=== PATIENT | female | born 1965 | race American Indian/Alaskan Native ===

== ENCOUNTER 2016-09-26 00:12 | Emergency (ER) | payer OTHER ==
[2016-09-26 00:58] VITALS: BP 160/81
--- NOTE | 2016-09-26 01:59 | EDM.PDOC ---
ED HPI GENERAL MEDICAL PROBLEM - General Chief Complaint: Respiratory Problem Stated Complaint: FLUID IN LUNGS, COUGHING Time Seen by Provider: 09/26/16 00:55 - History of Present Illness INITIAL COMMENTS - FREE TEXT/NARRATIVE: cough for past 3-4 days, no fever, diagnosed with bronchitis in past, relates from being in heat and going into cold airconditioning at workk at [email or web address]. No SOB, occasional pain below ribs with coughing episodes. No fever Location: Reports: Chest Associated Symptoms: Denies: Fever/Chills, Loss of Appetite, Nausea/Vomiting, Rash, Shortness of Breath Mid-Sternal Chest Pain Score (Numeric/FACES): 7 - Related Data Allergies Allergy/AdvReac Type Severity Reaction Status Date / Time latex Allergy Rash Verified 09/26/16 00:58 Home Meds: Home Meds Aspirin [Zoey Chewable] 81 mg PO DAILY 09/20/13 [History] Ferrous Gluconate 325 mg PO DAILY 09/20/13 [History] Lisinopril 5 mg PO DAILY 09/20/13 [History] Sertraline HCl 100 mg PO DAILY 09/20/13 [History] Simvastatin [Zocor] 40 mg PO BEDTIME 09/20/13 [History] buPROPion [Wellbutrin SR] 100 mg PO DAILY 09/20/13 [History] glyBURIDE [Glyburide] 5 mg PO DAILY 09/20/13 [History] Gabapentin [Neurontin] 300 mg PO DAILY 09/26/16 [History] Saxagliptin HCl [Onglyza] 5 mg PO DAILY 09/26/16 [History] metFORMIN [Glucophage XR] 500 mg PO BIDMEALS 09/26/16 [History] Past Medical History HEENT History: Reports: Impaired Vision Other HEENT History: wears glasses Cardiovascular History: Reports: High Cholesterol, Hypertension Respiratory History: Reports: Bronchitis, Recurrent Genitourinary History: Reports: None 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 Musculoskeletal History: Reports: None Neurological History: Reports: None Psychiatric History: Reports: None Endocrine/Metabolic History: Reports: Diabetes, Type II Hematologic History: Reports: None Immunologic History: Reports: None Oncologic (Cancer) History: Reports: None - Past Surgical History GI Surgical History: Reports: Other (See Below) Other GI Surgeries/Procedures: Had recent sugery to fix ruptured intestines and henia Social & Family History - Family History Family Medical History: Noncontributory - Tobacco Use Smoking Status *Q: Never Smoker Second Hand Smoke Exposure: No - Alcohol Use Days Per Week of Alcohol Use: 0 - Recreational Drug Use Recreational Drug Use: No ED ROS GENERAL - Review of Systems Review Of Systems: See Below Constitutional: Denies: Fever HEENT: Reports: No Symptoms, Throat Pain (after coughing episodes) Respiratory: Reports: Cough, Sputum (yellow green at times) Cardiovascular: Reports: No Symptoms GI/Abdominal: Reports: No Symptoms Musculoskeletal: Reports: No Symptoms Skin: Reports: No Symptoms Neurological: Reports: No Symptoms ED EXAM, GENERAL - Physical Exam Exam: See Below Exam Limited By: Language Barrier General Appearance: Alert, Mild Distress Eye Exam: Bilateral Eye: EOMI Ears: Normal External Exam, Normal TMs Nose: Normal Inspection Throat/Mouth: Normal Inspection Head: Atraumatic, Normocephalic Neck: Normal Inspection, Full Range of Motion Respiratory/Chest: Decreased Breath Sounds (base), Other (harsh bronchial cough) . No: Rales, Rhonchi, Wheezing Cardiovascular: Normal Peripheral Pulses, Regular Rate, Rhythm GI/Abdominal: Normal Bowel Sounds Back Exam: Normal Inspection Extremities: Normal Inspection Neurological: Alert, Oriented, Normal Cognition Psychiatric: Normal Affect Skin Exam: Warm, Dry, Intact, Normal Color Course - Vital Signs Last Recorded V/S: Last Vital Signs Temp 98 F 09/26/16 00:53 Pulse 85 09/26/16 00:53 Resp 18 09/26/16 00:53 BP 160/81 H 09/26/16 00:53 Pulse Ox 98 09/26/16 00:53 - Orders/Labs/Meds Meds: Medications Discontinued Medications Generic Name Dose Route Start Last Admin Trade Name Donnell PRN Reason Stop Dose Admin Albuterol/Ipratropium 3 ml 09/26/16 02:10 09/26/16 02:14 Duoneb 3.0-0.5 Mg/3 Ml NEB 09/26/16 02:11 3 ml ONETIME ONE Administration Benzonatate 200 mg 09/26/16 03:01 09/26/16 03:18 Tessalon Perles PO 09/26/16 03:02 200 mg ONETIME ONE Administration Prednisone 40 mg 09/26/16 03:00 09/26/16 03:18 Prednisone PO 09/26/16 03:01 40 mg ONETIME ONE Administration Departure - Departure Time of Disposition: 03:01 Disposition: Home, Self-Care 01 Condition: Fair Clinical Impression: Bronchitis - Discharge Information Instructions: Acute Bronchitis, [id number] Referrals: Laverne Booth 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
[2016-09-26] MEDS ORDERED: Albuterol/Ipratropium 3.0-0.5 MG/3 ML Neb Soln NEB ONE (02:10)
[2016-09-26] MEDS ORDERED: predniSONE 20 MG Tab PO ONE (03:00)
[2016-09-26] MEDS ORDERED: Benzonatate 100 MG Cap PO ONE (03:01)
== END 2016-09-26 03:22 | disposition home or self-care (01) ==
LOC: DL.ED 00:12
DX: J40 Bronchitis, not specified as acute or chronic (principal); I10 Essential (primary) hypertension; E78.00 Pure hypercholesterolemia, unspecified; E11.9 Type 2 diabetes mellitus without complications; Z98.890 Other specified postprocedural states; Z79.84 Long term (current) use of oral hypoglycemic drugs; Z79.82 Long term (current) use of aspirin; Z79.899 Other long term (current) drug therapy; Z91.040 Latex allergy status
CPT/HCPCS: 71010; 99283; A9270

== ENCOUNTER 2019-03-15 04:23 | Emergency (ER) | payer OTHER ==
--- NOTE | 2019-03-15 04:41 | EDM.PDOC ---
ED HPI GENERAL MEDICAL PROBLEM - General Chief Complaint: Head Injury Stated Complaint: AMBULANCE Time Seen by Provider: 03/15/19 04:36 Source of Information: Reports: Patient, EMS History Limitations: Reports: No Limitations - History of Present Illness INITIAL COMMENTS - FREE TEXT/NARRATIVE: EMS arrived at scene pt in chair alert Ox3 stating been falling and hurt head denies neck pain. walked to ambulance unassisted. pt states been falling since yesterday from dizziness, no CP/SOB. admits to drinking tonight. Left Parietal Head Pain Score (Numeric/FACES): 7 Left Chest Pain Score (Numeric/FACES): 5 - Related Data Allergies Allergy/AdvReac Type Severity Reaction Status Date / Time latex Allergy Rash Verified 03/15/19 04:47 Home Meds: Home Meds Aspirin [Zoey Chewable] 81 mg PO DAILY 09/20/13 [History] Ferrous Gluconate 325 mg PO DAILY 09/20/13 [History] Lisinopril 5 mg PO DAILY 09/20/13 [History] Sertraline HCl 100 mg PO DAILY 09/20/13 [History] Simvastatin [Zocor] 40 mg PO BEDTIME 09/20/13 [History] buPROPion [Wellbutrin SR] 100 mg PO DAILY 09/20/13 [History] glyBURIDE [Glyburide] 5 mg PO DAILY 09/20/13 [History] Gabapentin [Neurontin] 300 mg PO DAILY 09/26/16 [History] Saxagliptin HCl [Onglyza] 5 mg PO DAILY 09/26/16 [History] metFORMIN [Glucophage XR] 500 mg PO BIDMEALS 09/26/16 [History] Past Medical History HEENT History: Reports: Impaired Vision Other HEENT History: wears glasses Cardiovascular History: Reports: High Cholesterol, Hypertension Respiratory History: Reports: Bronchitis, Recurrent Genitourinary History: Reports: None 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 Musculoskeletal History: Reports: Fracture Neurological History: Reports: None Psychiatric History: Reports: None Endocrine/Metabolic History: Reports: Diabetes, Type II Hematologic History: Reports: None Immunologic History: Reports: None Oncologic (Cancer) History: Reports: None - Past Surgical History GI Surgical History: Reports: Other (See Below) Other GI Surgeries/Procedures: Had recent sugery to fix ruptured intestines and henia Social & Family History - Family History Family Medical History: Noncontributory - Caffeine Use Caffeine Use: Reports: Coffee, Soda - Living Situation & Occupation Living situation: Reports: with Family Occupation: Disabled ED ROS GENERAL - Review of Systems Review Of Systems: Comprehensive ROS is negative, except as noted in HPI. ED EXAM, HEAD INJURY - Physical Exam Exam: See Below Exam Limited By: No Limitations General Appearance: Alert, WD/WN, Mild Distress, Other (discomfort) Head: Scalp Lacerations, Other (left parietal). No: Gordillo's Sign, Raccoon Eyes Nexus Criteria: Evidence of Intoxication. No: Posterior, Midline Cervical Tenderness, Altered Level of Consciousness, Focal Neurological Deficit, Painful Distraction Injuries Eyes: Bilateral Eye: PERRL (pupils ess ER @ 4mm) Ears: Hearing Grossly Normal Throat/Mouth: Normal Voice, No Airway Compromise Neck: Full Range of Motion Respiratory: No Respiratory Distress Cardiovascular: Regular Rate, Rhythm GI/Abdominal Exam: Soft, Non-Tender Neurologic: No Motor/Sensory Deficits, Alert, Oriented x 3 Skin: Normal Color, Warm/Dry - Stefanie Coma Score Best Eye Response (Turner): (4) Open Spontaneously Best Verbal Response (Turner): (5) Oriented Best Motor Response (Stefanie): (6) Obeys Commands Stefanie Total: 15 Course - Vital Signs Last Recorded V/S: Last Vital Signs Temp 36.0 C 03/15/19 04:42 Pulse 73 03/15/19 04:42 Resp 19 03/15/19 04:42 BP 105/64 03/15/19 04:42 Pulse Ox 98 03/15/19 04:42 - Orders/Labs/Meds Orders: Active Orders 24 hr Category Date Time Status Cervical Spine wo Cont [CT] Urgent Exams 03/15/19 04:38 Ordered Chest wo Cont [CT] Urgent Exams 03/15/19 04:38 Ordered Head wo Cont [CT] Urgent Exams 03/15/19 04:38 Taken Labs: Laboratory Tests 03/15/19 03/15/19 Range/Units 04:41 04:41 WBC 7.5 (5.0-10.0) 10^3/uL RBC 4.40 (4.2-5.4) 10^6/uL Hgb 13.0 D (12.0-16.0) g/dL Hct 38.2 (37.0-47.0) % MCV 86.8 (80-100) fL MCH 29.5 (27.0-34.0) pg MCHC 34.0 (33.0-35.0) g/dL Plt Count 162 (150-450) 10^3/uL Neut % (Auto) 62.6 (42.2-75.2) % Lymph % (Auto) 26.8 (20.5-50.1) % [place] % (Auto) 6.7 (2-8) % Eos % (Auto) 3.5 H (1.0-3.0) % Baso % (Auto) 0.4 (0.0-1.0) % Sodium 134 L (135-145) mmol/L Potassium 3.6 (3.6-5.0) mmol/L Chloride 108 (101-111) mmol/L Carbon Dioxide 17.0 L (21.0-31.0) mmol/L Anion Gap 12.6 BUN 7 (7-18) mg/dL Creatinine 0.6 (0.6-1.3) mg/dL Est Cr Clr Drug Dosing TNP Estimated GFR (MDRD) > 60 BUN/Creatinine Ratio 11.66 Glucose 188 H (74-105) mg/dL Calcium 8.1 L (8.4-10.2) mg/dl Total Bilirubin 0.4 (0.2-1.0) mg/dL AST 15 (10-42) IU/L ALT 19 (10-60) IU/L Alkaline Phosphatase 100 (42-121) IU/L Troponin I < 0.02 (0.00-0.02) ng/ml Total Protein 6.6 L (6.7-8.2) g/dl Albumin 3.2 (3.2-5.5) g/dl Globulin 3.4 Albumin/Globulin Ratio 0.94 Ethyl Alcohol 218 mg/dL - Re-Assessments/Exams Free Text/Narrative Re-Assessment/Exam: 03/15/19 05:53 results discussed with pt who was sleeping arousable, states left ribs still hurts. Departure - Departure Time of Disposition: 05:54 Disposition: Home, Self-Care 01 Condition: Good Clinical Impression: Concussion with less than 1 hour loss of consciousness Scalp abrasion Qualifiers: Encounter type: initial encounter Qualified Code(s): S00.01XA - Abrasion of scalp, initial encounter Alcohol intoxication Qualifiers: Complication of substance-induced condition: uncomplicated Qualified Code(s): F10.920 - Alcohol use, unspecified with intoxication, uncomplicated Contusion of rib on left side Qualifiers: Encounter type: initial encounter Qualified Code(s): S20.212A - Contusion of left front wall of thorax, initial encounter - Discharge Information Instructions: Concussion, Adult, [id number] Forms: ED Department Discharge Additional Instructions: 1) no bending straining lifting next 48 hours 2) take tylenol or motrin for discomfort 3) follow up at clinic Sepsis Event Note - Focused Exam Vital Signs: Vital Signs Temp Pulse Resp BP Pulse Ox 03/15/19 04:42 36.0 C 73 19 105/64 98 Date Exam was Performed: 03/15/19 Time Exam was Performed: 05:53 - My Orders Last 24 Hours: My Active Orders 03/15/19 04:38 Cervical Spine wo Cont [CT] Urgent Chest wo Cont [CT] Urgent Head wo Cont [CT] Urgent - Assessment/Plan Last 24 Hours: My Active Orders 03/15/19 04:38 Cervical Spine wo Cont [CT] Urgent Chest wo Cont [CT] Urgent Head wo Cont [CT] Urgent
[2019-03-15 04:47] VITALS: BP 105/64; PULSE 73
[2019-03-15 05:12] LABS: ANION GAP 12.6; CHLORIDE,CL 108 mmol/L (101-111); SODIUM,NA 134 mmol/L (135-145)
== END 2019-03-15 06:05 | disposition home or self-care (01) ==
LOC: DL.ED 04:23
DX: S06.0X9A Concussion with loss of consciousness of unspecified duration, initial encounter (principal); S20.211A Contusion of right front wall of thorax, initial encounter; F10.129 Alcohol abuse with intoxication, unspecified; R40.2412 Glasgow coma scale score 13-15, at arrival to emergency department; E11.9 Type 2 diabetes mellitus without complications; I10 Essential (primary) hypertension; E78.00 Pure hypercholesterolemia, unspecified; Z79.899 Other long term (current) drug therapy; Z79.84 Long term (current) use of oral hypoglycemic drugs; Z79.82 Long term (current) use of aspirin; W01.198A Fall on same level from slipping, tripping and stumbling with subsequent striking against other object, initial encounter; Y90.7 Blood alcohol level of 200-239 mg/100 ml
CPT/HCPCS: 36415; 70450; 71250; 72125; 80053; 84484; 85025; 99285-25; G0480

== ENCOUNTER 2020-08-16 07:37 | Emergency (ER) | payer OTHER, MEDICAID ==
[2020-08-16 07:54] VITALS: BP 97/63; PULSE 85
[2020-08-16] MEDS ORDERED: Acetaminophen 500 MG Tab PO ONE (08:30)
--- NOTE | 2020-08-16 09:10 | CR ---
PROCEDURE INFORMATION: Exam: XR Left Knee Exam date and time: 08/16/2020 8:43 AM Age: 55 years old Clinical indication: Injury or trauma; Fall; Blunt trauma; Knee; Left; Additional info: Slip and fall onto left knee; Lateral pain TECHNIQUE: Imaging protocol: XR Left knee. Views: 3 views. COMPARISON: No relevant prior studies available. FINDINGS: Bones/joints: Cortical irregularity of the most medial aspect of the medial tibial plateau suspicious for minimally displaced fracture. This is difficult to evaluate due to the obliquity with which the frontal view was acquired. Consider repeat views or CT. The bones are demineralized. Degenerative arthritis in the patellofemoral joint with joint space narrowing and cortical irregularity of the articular surface of the patella. Soft tissues: Normal. IMPRESSION: Findings suspicious for minimally displaced fracture of the medial tibial plateau.
--- NOTE | 2020-08-16 09:40 | CT ---
PROCEDURE INFORMATION: Exam: CT Left Lower Extremity Without Contrast, Knee Exam date and time: 08/16/2020 9:33 AM Age: 55 years old Clinical indication: Injury or trauma; Fall; Blunt trauma; Knee; Right; Additional info: R/O medial tibial plateau fracture TECHNIQUE: Imaging protocol: CT of the Left lower extremity without contrast was performed. Exam focused on the knee. Radiation optimization: All CT scans at this facility use at least one of these dose optimization techniques: automated exposure control; mA and/or kV adjustment per patient size (includes targeted exams where dose is matched to clinical indication); or iterative reconstruction. COMPARISON: CR Knee 3V Lt 08/16/2020 8:43 AM FINDINGS: Bones/joints: Small tricompartment marginal osteophytes of the left knee. Narrowed medial compartment. Cortical irregularity with cystic change and sclerosis of the patella. Soft tissues: Anterior subcutaneous edema. IMPRESSION: 1. No fracture identified 2. 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
--- NOTE | 2020-08-16 09:45 | EDM.PDOC ---
ED HPI GENERAL MEDICAL PROBLEM - General Chief Complaint: Lower Extremity Injury/Pain Stated Complaint: TWISTED KNEE AT WORK Time Seen by Provider: 08/16/20 08:00 Source of Information: Reports: Patient, RN, RN Notes Reviewed History Limitations: Reports: No Limitations - History of Present Illness INITIAL COMMENTS - FREE TEXT/NARRATIVE: Susannah is a 55 y/o female who presents to the ED via personal vehicle with complaints of left lateral knee pain. The patient reports falling onto her left knee while at work approximately four hours prior to arrival to this facility. She notes the injury happened at approximately 0600 and she was unable to come in earlier as she was the only person at work; she was able to ambulate and continue with her morning duties. She denies history of injury to the affected extremity. She denies loss of motor or sensory function to the affected extremity. She has not taken any pain medication for the achy pain which she rates at a 9/10. Left Knee Pain Score (Numeric/FACES): 8 - Related Data Allergies Allergy/AdvReac Type Severity Reaction Status Date / Time latex Allergy Rash Verified 08/16/20 07:55 Home Meds: Home Meds Aspirin [Zoey Chewable] 81 mg PO DAILY 09/20/13 [History] Ferrous Gluconate 325 mg PO DAILY 09/20/13 [History] Lisinopril 10 mg PO DAILY 09/20/13 [History] Sertraline HCl 100 mg PO DAILY 09/20/13 [History] Simvastatin [Zocor] 40 mg PO BEDTIME 09/20/13 [History] buPROPion [Wellbutrin SR] 100 mg PO DAILY 09/20/13 [History] glyBURIDE [Glyburide] 10 mg PO DAILY 09/20/13 [History] Gabapentin [Neurontin] 300 mg PO DAILY 09/26/16 [History] Saxagliptin HCl [Onglyza] 5 mg PO DAILY 09/26/16 [History] metFORMIN [Glucophage XR] 1,000 mg PO BIDMEALS 09/26/16 [History] Insulin Detemir [Levemir Flextouch] 10 unit SQ DAILY 08/16/20 [History] Past Medical History HEENT History: Reports: Impaired Vision Other HEENT History: wears glasses Cardiovascular History: Reports: High Cholesterol, Hypertension Respiratory History: Reports: Bronchitis, Recurrent Genitourinary History: Reports: None 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 Musculoskeletal History: Reports: Fracture Neurological History: Reports: None Psychiatric History: Reports: None Endocrine/Metabolic History: Reports: Diabetes, Type II Hematologic History: Reports: None Immunologic History: Reports: None Oncologic (Cancer) History: Reports: None - Past Surgical History GI Surgical History: Reports: Other (See Below) Other GI Surgeries/Procedures: Had recent sugery to fix ruptured intestines and henia Social & Family History - Family History Family Medical History: No Pertinent Family History - Tobacco Use Tobacco Use Status *Q: Current Status Unknown - Caffeine Use Caffeine Use: Reports: Soda - Recreational Drug Use Recreational Drug Use: No - Living Situation & Occupation Living situation: Reports: with Family Occupation: Disabled Review of Systems - Review of Systems Review Of Systems: Comprehensive ROS is negative, except as noted in HPI. ED EXAM, GENERAL - Physical Exam Exam: See Below Exam Limited By: No Limitations General Appearance: Alert, No Apparent Distress Eye Exam: Bilateral Eye: EOMI, Normal Inspection, PERRL (3mm) Throat/Mouth: Normal Inspection, Normal Oropharynx, Normal Voice, No Airway Compromise Head: Atraumatic, Normocephalic Respiratory/Chest: No Respiratory Distress, Lungs Clear, Normal Breath Sounds, No Accessory Muscle Use, Chest Non-Tender Cardiovascular: Normal Peripheral Pulses, Regular Rate, Rhythm, No Edema, No Gallop, No JVD, No Murmur, No Rub Peripheral Pulses: 2+: Radial (L), Radial (R), Posterior Tibial (L), Posterior Tibial (R), Dorsalis Pedis (L), Dorsalis Pedis (R) GI/Abdominal: Normal Bowel Sounds, Soft, Non-Tender, No Organomegaly, No Distention, No Abnormal Bruit, No Mass, Pelvis Stable Back Exam: Normal Inspection, Full Range of Motion Extremities: Normal Range of Motion, Normal Capillary Refill, Leg Pain (To left lateral knee). No: Joint Swelling, Rayo's Sign, Limited Range of Motion, Increased Warmth, Mottled, Pallor, Redness Neurological: Alert, Oriented, CN II-XII Intact, Normal Cognition, Normal Gait, Normal Reflexes, No Motor/Sensory Deficits Psychiatric: Normal Affect, Normal Mood Skin Exam: Warm, Dry, Intact, Normal Color, No Rash. No: Ecchymosis, Erythema, Mottled, Pallor, Petechiae Course - Vital Signs Last Recorded V/S: Last Vital Signs Temp 96.6 F L 08/16/20 07:50 Pulse 85 08/16/20 07:50 Resp 14 08/16/20 07:50 BP 97/63 08/16/20 07:50 Pulse Ox 99 08/16/20 07:50 - Orders/Labs/Meds Meds: Medications Discontinued Medications Generic Name Dose Route Start Last Admin Trade Name Freq PRN Reason Stop Dose Admin Acetaminophen 1,000 mg 08/16/20 08:30 08/16/20 08:36 Acetaminophen 500 Mg Tab PO 08/16/20 08:31 1,000 mg ONETIME ONE Administration Ibuprofen 600 mg 08/16/20 09:51 08/16/20 09:55 Ibuprofen 600 Mg Tab PO 08/16/20 09:52 Not Given ONETIME ONE - Radiology Interpretation Free Text/Narrative:: [facility] [place] [facility] Final Radiology Report Call: [phone] assistance Online chat: [email or web address] Name: SUSANNAH SHAH Age: 55Years F Date: 08/16/2020 SSN: -- : [id number] Study: CR KNEE 3V LT Requesting Physician: Maru Garrido Images: 3 Addl Studies: Provided Clinical History: Slip and fall onto left knee; lateral pain Contrast: Contrast Medium: Contrast Amount: Contrast Method: CONFIDENTIALITY STATEMENT This report is intended only for use by the referring physician, and only in accordance with law. If you received this in error, call [phone]. Page 1 of 1 PROCEDURE INFORMATION: Exam: XR Left Knee Exam date and time: 08/16/2020 8:43 AM Age: 55 years old Clinical indication: Injury or trauma; Fall; Blunt trauma; Knee; Left; Additional info: Slip and fall onto left knee; Lateral pain TECHNIQUE: Imaging protocol: XR Left knee. Views: 3 views. COMPARISON: No relevant prior studies available. FINDINGS: Bones/joints: Cortical irregularity of the most medial aspect of the medial tibial plateau suspicious for minimally displaced fracture. This is difficult to evaluate due to the obliquity with which the frontal view was acquired. Consider repeat views or CT. The bones are demineralized. Degenerative arthritis in the patellofemoral joint with joint space narrowing and cortical irregularity of the articular surface of the patella. Soft tissues: Normal. IMPRESSION: Findings suspicious for minimally displaced fracture of the medial tibial plateau. Thank you for allowing us to participate in the care of your patient. Dictated and Authenticated by: Hortencia Dunham MD 08/16/2020 9:10 AM Central Time ( & [place]) [facility] Final Radiology Report Call: [phone] assistance Online chat: [email or web address] Name: SUSANNAH SHAH Age: 55Years F Date: 08/16/2020 SSN: -- : [id number] Study: CT KNEE WO CONT LT Requesting Physician: Maru Garrido Images: 248 Addl Studies: Provided Clinical History: r/o medial tibial plateau Contrast: Without Contrast Medium: Contrast Amount: Contrast Method: CONFIDENTIALITY STATEMENT This report is intended only for use by the referring physician, and only in accordance with law. If you received this in error, call [phone]. Page 1 of 1 PROCEDURE INFORMATION: Exam: CT Left Lower Extremity Without Contrast, Knee Exam date and time: 08/16/2020 9:33 AM Age: 55 years old Clinical indication: Injury or trauma; Fall; Blunt trauma; Knee; Right; Additional info: R/O medial tibial plateau fracture TECHNIQUE: Imaging protocol: CT of the Left lower extremity without contrast was performed. Exam focused on the knee. Radiation optimization: All CT scans at this facility use at least one of these dose optimization techniques: automated exposure control; mA and/or kV adjustment per patient size (includes targeted exams where dose is matched to clinical indication); or iterative reconstruction. COMPARISON: CR Knee 3V Lt 08/16/2020 8:43 AM FINDINGS: Bones/joints: Small tricompartment marginal osteophytes of the left knee. Narrowed medial compartment. Cortical irregularity with cystic change and sclerosis of the patella. Soft tissues: Anterior subcutaneous edema. IMPRESSION: 1. No fracture identified 2. 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 Thank you for allowing us to participate in the care of your patient. Dictated and Authenticated by: Hortencia Dunham MD 08/16/2020 9:39 AM Central Time ([place] & [place]) - Re-Assessments/Exams Free Text/Narrative Re-Assessment/Exam: 08/16/20 Findings of examination and imaging reviewed with patient. Discussed supportive cares for acute knee pain and degenerative arthritis. Red flag signs and symptoms which would warrant reevaluation discussed. Patient verbalized understanding and agreement with the plan of care. Departure - Departure Time of Disposition: 09:47 Disposition: Home, Self-Care 01 Condition: Good Clinical Impression: Fall from ground level, Left lateral knee pain, Arthritis of left knee - Discharge Information *PRESCRIPTION DRUG MONITORING PROGRAM REVIEWED*: Not Applicable *COPY OF PRESCRIPTION DRUG MONITORING REPORT IN PATIENT [employer]: Not Applicable Instructions: Acute Knee Pain, Adult Forms: ED Department Discharge Additional Instructions: 1.) You may take ibuprofen (Advil/Motrin) 400mg every six hours, as pain and swelling persists. You may also take acetaminophen (Tylenol) 650mg every six hours, as pain persists. You may stagger these medications so you are receiving a dose every three hours. 2.) You may apply ice to the affected area, as swelling persists; 20 minutes on every hour. 3.) You may apply a compression sleeve to the knee should pain and swelling persist. 4.) Follow up with primary care provider in 5-7 days should pain not improve, or should it worsen. Sepsis Event Note (ED) - Evaluation Sepsis Screening Result: No Definite Risk - Focused Exam Vital Signs: Vital Signs Temp Pulse Resp BP Pulse Ox 08/16/20 07:50 96.6 F L 85 14 97/63 99
[2020-08-16] MEDS ORDERED: Ibuprofen 600 MG Tab PO ONE (09:51)
== END 2020-08-16 10:03 | disposition home or self-care (01) ==
LOC: DL.ED 07:37
DX: M17.12 Unilateral primary osteoarthritis, left knee (principal); E78.00 Pure hypercholesterolemia, unspecified; I10 Essential (primary) hypertension; E11.9 Type 2 diabetes mellitus without complications; Z79.82 Long term (current) use of aspirin; Z79.4 Long term (current) use of insulin; Z91.040 Latex allergy status; X50.1XXA Overexertion from prolonged static or awkward postures, initial encounter; Y99.0 Civilian activity done for income or pay
CPT/HCPCS: 73562; 73700; 99282; 99284; A9270

== ENCOUNTER 2020-08-18 18:38 | Emergency (ER) | payer OTHER, MEDICAID ==
[2020-08-18 19:31] VITALS: BP 120/92; PULSE 81
--- NOTE | 2020-08-18 22:33 | CR ---
PROCEDURE INFORMATION: Exam: XR Left Ribs with PA Chest Exam date and time: 08/18/2020 8:47 PM Age: 55 years old Clinical indication: Other: Left rib pain; Additional info: Fall left lower posterior rib pain TECHNIQUE: Imaging protocol: XR Left ribs with PA chest. Views: 3 views COMPARISON: 1. CT Chest wo Cont 03/15/2019 4:55 AM 2. CR Chest 1V Frontal 05/11/2018 8:35 AM FINDINGS: Lungs: Unremarkable. No consolidation. Pleural spaces: Unremarkable. No pleural effusion. No pneumothorax. Heart/Mediastinum: Unremarkable. No cardiomegaly. Bones/joints: Unremarkable. IMPRESSION: No acute findings.
--- NOTE | 2020-08-18 23:10 | EDM.PDOC ---
ED HPI GENERAL MEDICAL PROBLEM - General Chief Complaint: Chest Pain Stated Complaint: LEFT RIB CAGE PAIN Time Seen by Provider: 08/18/20 20:15 Source of Information: Reports: Patient History Limitations: Reports: No Limitations - History of Present Illness INITIAL COMMENTS - FREE TEXT/NARRATIVE: Left posterior rib pain x 2 days after fall, worse with movement. No cough or fever. Left Chest Pain Score (Numeric/FACES): 8 - Related Data Allergies Allergy/AdvReac Type Severity Reaction Status Date / Time latex Allergy Rash Verified 08/18/20 19:38 Home Meds: Home Meds Aspirin [Zoey Chewable] 81 mg PO DAILY 09/20/13 [History] Ferrous Gluconate 325 mg PO DAILY 09/20/13 [History] Lisinopril 10 mg PO DAILY 09/20/13 [History] Sertraline HCl 100 mg PO DAILY 09/20/13 [History] buPROPion [Wellbutrin SR] 100 mg PO DAILY 09/20/13 [History] glyBURIDE [Glyburide] 10 mg PO DAILY 09/20/13 [History] Gabapentin [Neurontin] 300 mg PO DAILY 09/26/16 [History] Saxagliptin HCl [Onglyza] 5 mg PO DAILY 09/26/16 [History] metFORMIN [Glucophage XR] 1,000 mg PO BIDMEALS 09/26/16 [History] Insulin Detemir [Levemir Flextouch] 10 unit SQ DAILY 08/16/20 [History] Cholecalciferol (Vitamin D3) [Vitamin D] 5,000 unit PO DAILY 08/18/20 [History] Pioglitazone [Actos] 30 mg PO DAILY 08/18/20 [History] atorvaSTATin [Lipitor] 10 mg PO BEDTIME 08/18/20 [History] Past Medical History HEENT History: Reports: Impaired Vision Other HEENT History: wears glasses Cardiovascular History: Reports: High Cholesterol, Hypertension Respiratory History: Reports: Bronchitis, Recurrent Genitourinary History: Reports: None 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 Musculoskeletal History: Reports: Fracture Neurological History: Reports: None Psychiatric History: Reports: Depression Endocrine/Metabolic History: Reports: Diabetes, Type II Hematologic History: Reports: None Immunologic History: Reports: None Oncologic (Cancer) History: Reports: None - Past Surgical History GI Surgical History: Reports: Hernia, Abdominal, Other (See Below) Other GI Surgeries/Procedures: Had recent sugery to fix ruptured intestines and henia Musculoskeletal Surgical History: Reports: Other (See Below) Other Musculoskeletal Surgeries/Procedures:: ankle surgery bilaterally, plates Social & Family History - Family History Family Medical History: No Pertinent Family History - Tobacco Use Tobacco Use Status *Q: Never Tobacco User - Caffeine Use Caffeine Use: Reports: Soda - Recreational Drug Use Recreational Drug Use: No - Living Situation & Occupation Living situation: Reports: with Family Occupation: Disabled ED ROS GENERAL - Review of Systems Review Of Systems: Comprehensive ROS is negative, except as noted in HPI. ED EXAM, GENERAL - Physical Exam Exam: See Below Exam Limited By: No Limitations General Appearance: Alert, Mild Distress Eye Exam: Bilateral Eye: EOMI Ears: Normal External Exam, Hearing Grossly Normal Nose: Normal Inspection Head: Atraumatic, Normocephalic Neck: Normal Inspection, Full Range of Motion Respiratory/Chest: No Respiratory Distress, Lungs Clear, Normal Breath Sounds. No: Chest Non-Tender (left posterior/lateral lower ribs tender with palpation), Rales, Rhonchi, Wheezing Cardiovascular: Normal Peripheral Pulses, Regular Rate, Rhythm GI/Abdominal: Normal Bowel Sounds, Soft Extremities: Normal Inspection Neurological: Alert, Oriented, Normal Cognition Psychiatric: Normal Affect Skin Exam: Warm, Dry, Intact, Normal Color Course - Vital Signs Last Recorded V/S: Last Vital Signs Temp 97.4 F 08/18/20 19:15 Pulse 81 08/18/20 19:15 Resp 18 08/18/20 19:15 BP 120/92 H 08/18/20 19:15 Pulse Ox 98 08/18/20 19:15 Departure - Departure Time of Disposition: 23:08 Disposition: Home, Self-Care 01 Condition: Good Clinical Impression: Rib pain on left side Fall Qualifiers: Encounter type: subsequent encounter Qualified Code(s): W19.XXXD - Unspecified fall, subsequent encounter - Discharge Information *PRESCRIPTION DRUG MONITORING PROGRAM REVIEWED*: No *COPY OF PRESCRIPTION DRUG MONITORING REPORT IN PATIENT ISIS: No Instructions: Chest Wall Pain, [id number] Referrals: Vince Landis [Primary Care Provider] - Forms: ED Department Discharge Additional Instructions: deep breathing exercises every two hours while awake tylenol 500mg every 4 hours heat to rib area emelina lucas or icy hot type product splint ribs when coughing, sneezing or changing position Sepsis Event Note (ED) - Evaluation Sepsis Screening Result: No Definite Risk - Focused Exam Vital Signs: Vital Signs Temp Pulse Resp BP Pulse Ox 08/18/20 19:15 97.4 F 81 18 120/92 H 98
== END 2020-08-18 23:27 | disposition home or self-care (01) ==
LOC: DL.ED 18:38
DX: R07.81 Pleurodynia (principal); E78.00 Pure hypercholesterolemia, unspecified; I10 Essential (primary) hypertension; E11.9 Type 2 diabetes mellitus without complications; Z79.4 Long term (current) use of insulin; Z91.040 Latex allergy status; Z79.82 Long term (current) use of aspirin; Z79.899 Other long term (current) drug therapy; W19.XXXD Unspecified fall, subsequent encounter
CPT/HCPCS: 71101-LT; 99282; 99283-25

== ENCOUNTER 2020-12-16 01:21 | Emergency (ER) | payer MEDICAID, OTHER ==
--- NOTE | 2020-12-16 01:13 | EDM.PDOC ---
ED HPI GENERAL MEDICAL PROBLEM - General Stated Complaint: AMBULANCE Time Seen by Provider: 12/16/20 01:30 Source of Information: Reports: Patient History Limitations: Reports: No Limitations - History of Present Illness INITIAL COMMENTS - FREE TEXT/NARRATIVE: ED with c/o SOB and constant chest pain x 4 days, Pain worse with cough. SOB lying down. Reports breathing feels worse when outside in cold. No report fever or chills. No nausea or vomiting. No report of fever. No edema - Related Data Allergies Allergy/AdvReac Type Severity Reaction Status Date / Time latex Allergy Rash Verified 12/16/20 01:26 Home Meds: Home Meds Aspirin [Zoey Chewable] 81 mg PO DAILY 09/20/13 [History] Ferrous Gluconate 325 mg PO DAILY 09/20/13 [History] Lisinopril 10 mg PO DAILY 09/20/13 [History] Sertraline HCl 100 mg PO DAILY 09/20/13 [History] buPROPion [Wellbutrin SR] 100 mg PO DAILY 09/20/13 [History] glyBURIDE [Glyburide] 10 mg PO DAILY 09/20/13 [History] Gabapentin [Neurontin] 300 mg PO DAILY 09/26/16 [History] Saxagliptin HCl [Onglyza] 5 mg PO DAILY 09/26/16 [History] metFORMIN [Glucophage XR] 1,000 mg PO BIDMEALS 09/26/16 [History] Insulin Detemir [Levemir Flextouch] 10 unit SQ DAILY 08/16/20 [History] Cholecalciferol (Vitamin D3) [Vitamin D] 5,000 unit PO DAILY 08/18/20 [History] Pioglitazone [Actos] 30 mg PO DAILY 08/18/20 [History] atorvaSTATin [Lipitor] 10 mg PO BEDTIME 08/18/20 [History] Past Medical History HEENT History: Reports: Impaired Vision Other HEENT History: wears glasses Cardiovascular History: Reports: High Cholesterol, Hypertension Respiratory History: Reports: Bronchitis, Recurrent Genitourinary History: Reports: None DATA SME History: Reports: None Musculoskeletal History: Reports: Fracture Neurological History: Reports: None Psychiatric History: Reports: Depression Endocrine/Metabolic History: Reports: Diabetes, Type II Hematologic History: Reports: None Immunologic History: Reports: None Oncologic (Cancer) History: Reports: None - Past Surgical History GI Surgical History: Reports: Hernia, Abdominal, Other (See Below) Other GI Surgeries/Procedures: Had recent sugery to fix ruptured intestines and henia Musculoskeletal Surgical History: Reports: Other (See Below) Other Musculoskeletal Surgeries/Procedures:: ankle surgery bilaterally, plates Social & Family History - Family History Family Medical History: No Pertinent Family History - Caffeine Use Caffeine Use: Reports: Soda - Living Situation & Occupation Living situation: Reports: with Family Occupation: Disabled ED ROS GENERAL - Review of Systems Review Of Systems: Comprehensive ROS is negative, except as noted in HPI. ED EXAM, GENERAL - Physical Exam Exam: See Below Exam Limited By: No Limitations General Appearance: Alert, Anxious, Mild Distress, Obese Eye Exam: Bilateral Eye: EOMI Ears: Normal External Exam Nose: Normal Inspection Throat/Mouth: Normal Inspection Head: Atraumatic, Normocephalic Neck: Normal Inspection Respiratory/Chest: No Respiratory Distress, Lungs Clear, Decreased Breath Sounds (bases) Cardiovascular: Normal Peripheral Pulses, Regular Rate, Rhythm, No Edema, No JVD GI/Abdominal: Normal Bowel Sounds, Soft Extremities: Normal Inspection Neurological: Alert, Oriented, CN II-XII Intact, Normal Cognition Psychiatric: Normal Affect, Anxious Skin Exam: Warm, Dry, Intact #1 Interpretation EKG Date: 12/16/20 Time: 01:13 Rhythm: NSR Rate (Beats/Min): 77 Elizabeth: RAD-Right Elizabeth Deviation P-Wave: Present QRS: Normal ST-T: Normal Comparison: NA - No Prior EKG Course - Vital Signs Last Recorded V/S: Last Vital Signs Temp 98.6 F 12/16/20 01:26 Pulse 77 12/16/20 01:26 Resp 24 H 12/16/20 01:26 BP 96/60 12/16/20 01:26 Pulse Ox 97 12/16/20 01:26 - Orders/Labs/Meds Labs: Laboratory Tests 12/16/20 12/16/20 12/16/20 Range/Units 01:16 01:16 01:16 WBC 5.6 (5.0-10.0) 10^3/uL RBC 4.01 L (4.2-5.4) 10^6/uL Hgb 11.8 L (12.0-16.0) g/dL Hct 36.4 L (37.0-47.0) % MCV 90.8 D (80-100) fL MCH 29.4 (27.0-34.0) pg MCHC 32.4 L (33.0-35.0) g/dL Plt Count 141 L (150-450) 10^3/uL Neut % (Auto) 54.7 (42.2-75.2) % Lymph % (Auto) 30.3 (20.5-50.1) % Phelps % (Auto) 7.6 (2-8) % Eos % (Auto) 6.9 H (1.0-3.0) % Baso % (Auto) 0.5 (0.0-1.0) % PT 9.5 (9.0-12.0) SEC INR 0.9 (0.9-1.2) D-Dimer, Quantitative (0-400) ng/mL Sodium 141 (136-145) mmol/L Potassium 3.2 L (3.5-5.1) mmol/L Chloride 106 (98-107) mmol/L Carbon Dioxide 21 (21-32) mmol/L Anion Gap 17.2 H (7-13) mEq/L BUN 14 (7-18) mg/dL Creatinine 0.79 (0.55-1.02) mg/dL Est Cr Clr Drug Dosing TNP Estimated GFR (MDRD) > 60 BUN/Creatinine Ratio 17.7 (No establ ref range) Glucose 139 H (70-99) mg/dL Calcium 8.1 L (8.5-10.1) mg/dL Total Bilirubin 0.3 (0.2-1.0) mg/dL AST 12 L (15-37) U/L ALT 20 (14-59) U/L Alkaline Phosphatase 158 H (46-116) U/L Troponin I High Sens 5 (<=51) pg/mL B-Natriuretic Peptide 12 (0-100) pg/ml Total Protein 6.8 (6.4-8.2) g/dL Albumin 3.1 L (3.4-5.0) g/dL Globulin 3.7 Albumin/Globulin Ratio 0.84 Amylase 34 (25-115) U/L Lipase 119 (73-393) U/L Ethyl Alcohol (0) mg/dL SARS-CoV-2 RNA (MARIIA) (NEGATIVE) 12/16/20 12/16/20 12/16/20 Range/Units 01:16 01:16 01:28 WBC (5.0-10.0) 10^3/uL RBC (4.2-5.4) 10^6/uL Hgb (12.0-16.0) g/dL Hct (37.0-47.0) % MCV (80-100) fL MCH (27.0-34.0) pg MCHC (33.0-35.0) g/dL Plt Count (150-450) 10^3/uL Neut % (Auto) (42.2-75.2) % Lymph % (Auto) (20.5-50.1) % Phelps % (Auto) (2-8) % Eos % (Auto) (1.0-3.0) % Baso % (Auto) (0.0-1.0) % PT (9.0-12.0) SEC INR (0.9-1.2) D-Dimer, Quantitative 493 H (0-400) ng/mL Sodium (136-145) mmol/L Potassium (3.5-5.1) mmol/L Chloride (98-107) mmol/L Carbon Dioxide (21-32) mmol/L Anion Gap (7-13) mEq/L BUN (7-18) mg/dL Creatinine (0.55-1.02) mg/dL Est Cr Clr Drug Dosing Estimated GFR (MDRD) BUN/Creatinine Ratio (No establ ref range) Glucose (70-99) mg/dL Calcium (8.5-10.1) mg/dL Total Bilirubin (0.2-1.0) mg/dL AST (15-37) U/L ALT (14-59) U/L Alkaline Phosphatase (46-116) U/L Troponin I High Sens (<=51) pg/mL B-Natriuretic Peptide (0-100) pg/ml Total Protein (6.4-8.2) g/dL Albumin (3.4-5.0) g/dL Globulin Albumin/Globulin Ratio Amylase (25-115) U/L Lipase (73-393) U/L Ethyl Alcohol 189 (0) mg/dL SARS-CoV-2 RNA (MARIIA) Negative (NEGATIVE) 12/16/20 Range/Units 04:15 WBC (5.0-10.0) 10^3/uL RBC (4.2-5.4) 10^6/uL Hgb (12.0-16.0) g/dL Hct (37.0-47.0) % MCV (80-100) fL MCH (27.0-34.0) pg MCHC (33.0-35.0) g/dL Plt Count (150-450) 10^3/uL Neut % (Auto) (42.2-75.2) % Lymph % (Auto) (20.5-50.1) % Phelps % (Auto) (2-8) % Eos % (Auto) (1.0-3.0) % Baso % (Auto) (0.0-1.0) % PT (9.0-12.0) SEC INR (0.9-1.2) D-Dimer, Quantitative (0-400) ng/mL Sodium (136-145) mmol/L Potassium (3.5-5.1) mmol/L Chloride (98-107) mmol/L Carbon Dioxide (21-32) mmol/L Anion Gap (7-13) mEq/L BUN (7-18) mg/dL Creatinine (0.55-1.02) mg/dL Est Cr Clr Drug Dosing Estimated GFR (MDRD) BUN/Creatinine Ratio (No establ ref range) Glucose (70-99) mg/dL Calcium (8.5-10.1) mg/dL Total Bilirubin (0.2-1.0) mg/dL AST (15-37) U/L ALT (14-59) U/L Alkaline Phosphatase (46-116) U/L Troponin I High Sens 5 (<=51) pg/mL B-Natriuretic Peptide (0-100) pg/ml Total Protein (6.4-8.2) g/dL Albumin (3.4-5.0) g/dL Globulin Albumin/Globulin Ratio Amylase (25-115) U/L Lipase (73-393) U/L Ethyl Alcohol (0) mg/dL SARS-CoV-2 RNA (MARIIA) (NEGATIVE) Meds: Medications Discontinued Medications Generic Name Dose Route Start Last Admin Trade Name Freq PRN Reason Stop Dose Admin Aspirin 162 mg 12/16/20 01:28 12/16/20 01:46 Aspirin 81 Mg Tab.Chew PO 12/16/20 01:29 162 mg ONETIME ONE Administration Sodium Chloride 1,000 mls @ 999 mls/hr 12/16/20 01:24 12/16/20 01:58 Normal Saline IV 12/16/20 02:24 150 mls/hr .BOLUS ONE Infusion Morphine Sulfate 2 mg 12/16/20 01:29 12/16/20 03:52 Morphine 2 Mg/Ml Syringe IVPUSH 12/16/20 01:30 Not Given ONETIME ONE Potassium Chloride 20 meq 12/16/20 03:43 12/16/20 03:52 Potassium Chloride 10 Meq Tab.Er PO 12/16/20 03:44 20 meq ONETIME ONE Administration - Re-Assessments/Exams Free Text/Narrative Re-Assessment/Exam: 12/16/20 04:53 Results discussed with patient. Negative cardiac findings. no sign of significant pulmonary disease. Has been dozing since shortly after arrival. Denies pain on awakening. Departure - Departure Time of Disposition: 04:55 Disposition: Home, Self-Care 01 Condition: Good Clinical Impression: Non-cardiac chest pain, Anxiety, Alcohol abuse, Hypokalemia - Discharge Information *PRESCRIPTION DRUG MONITORING PROGRAM REVIEWED*: No *COPY OF PRESCRIPTION DRUG MONITORING REPORT IN PATIENT ISIS: No Instructions: Alcohol Use Disorder, Nonspecific Chest Pain, Adult, [id number] Additional Instructions: rest light activity, advance as tolerated clinic recheck on Sunday, sooner if symptoms worsen tylenol 500mg every 4 hours as needed decrease alcohol use Sepsis Event Note (ED) - Focused Exam Vital Signs: Vital Signs Temp Pulse Resp BP BP Pulse Ox 12/16/20 01:26 98.6 F 77 24 H 96/60 84/56 L 97
[2020-12-16] MEDS ORDERED: Sodium Chloride 0.9% 1,000 ML IV ONE (01:24)
[2020-12-16] MEDS ORDERED: Aspirin 81 MG Tab.Chew PO ONE (01:28)
[2020-12-16] MEDS ORDERED: Morphine 2 MG/ML SYRINGE IVPUSH ONE (01:29)
[2020-12-16 01:44] LABS: ANION GAP 17.2 mEq/L (7-13); CHLORIDE,CL 106 mmol/L (98-107); SODIUM,NA 141 mmol/L (136-145)
--- NOTE | 2020-12-16 03:40 | CR ---
PROCEDURE INFORMATION: Exam: XR Chest Exam date and time: 12/16/2020 1:48 AM Age: 55 years old Clinical indication: Pain; Chest pressure; Additional info: Chest pain, SOB TECHNIQUE: Imaging protocol: XR of the chest. Views: 1 view. COMPARISON: CR Ribs 2V w Chest Lt 08/18/2020 8:47 PM FINDINGS: Tubes, catheters and devices: Cardiac lead wires are noted. Lungs: The right lung is clear. Haziness at the left lung base was present on the previous examination. Pleural spaces: Unremarkable. No pleural effusion. No pneumothorax. Heart/Mediastinum: The heart is at the upper limits of normal in size but without evidence of failure. Bones/joints: Unremarkable. IMPRESSION: No definite acute change is noted.
[2020-12-16] MEDS ORDERED: Potassium Chloride 10 MEQ Tab.ER PO ONE (03:43)
[2020-12-16 07:02] VITALS: BP 111/68; PULSE 74
== END 2020-12-16 06:43 | disposition home or self-care (01) ==
LOC: DL.ED 01:21
DX: R07.9 Chest pain, unspecified (principal); F41.9 Anxiety disorder, unspecified; F10.10 Alcohol abuse, uncomplicated; E87.6 Hypokalemia; E78.00 Pure hypercholesterolemia, unspecified; I10 Essential (primary) hypertension; E11.9 Type 2 diabetes mellitus without complications; Z79.4 Long term (current) use of insulin; Z91.040 Latex allergy status; Z79.82 Long term (current) use of aspirin; Z79.899 Other long term (current) drug therapy; Z20.822 Contact with and (suspected) exposure to COVID-19
CPT/HCPCS: 36415; 71045; 80053; 80307; 82150; 83690; 83880; 84484; 85025; 85379; 85610; 87635; 93005; 99285; A9270; J7030; U0002

== ENCOUNTER 2021-01-04 22:52 | Emergency (ER) | payer MEDICAID ==
[2021-01-04 23:06] VITALS: BP 135/83; PULSE 88
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
== END 2021-01-05 00:05 | disposition home or self-care (01) ==
LOC: DL.ED 22:52
DX: S00.03XA Contusion of scalp, initial encounter (principal); E78.00 Pure hypercholesterolemia, unspecified; I10 Essential (primary) hypertension; E11.9 Type 2 diabetes mellitus without complications; Z79.4 Long term (current) use of insulin; Z79.899 Other long term (current) drug therapy; Z79.82 Long term (current) use of aspirin; Y04.0XXA Assault by unarmed brawl or fight, initial encounter
CPT/HCPCS: 70450; 99284-25

== ENCOUNTER 2021-01-23 17:37 | Emergency (ER) | payer MEDICAID ==
[2021-01-23 17:59] VITALS: BP 116/67; PULSE 72
--- NOTE | 2021-01-23 18:41 | EDM.PDOC ---
ED HPI GENERAL MEDICAL PROBLEM - General Chief Complaint: Respiratory Problem Stated Complaint: 97.2, COUGHING, FLEM, CHILLS, BREATHING Time Seen by Provider: 01/23/21 18:39 Source of Information: Reports: Patient, RN, RN Notes Reviewed History Limitations: Reports: No Limitations - History of Present Illness INITIAL COMMENTS - FREE TEXT/NARRATIVE: Qaun is a 55 y/o female who presents to the ED via personal vehicle with complaints of cough, congestion, and shortness of breath. The patient reports her symptoms began three days ago following exposure to an individual who tested positive for COVID the day prior. Additionally, she notes muscle aches and fatigue. She has been taking transient doses of acetaminophen with mild alleviation in symptoms. She denies fever, shaking chills, chest pain/pressure, palpitations, dyspepsia, nausea, vomiting, or diarrhea. She denies history of a COVID infection and is not vaccinated for COVID-19; she is vaccinated for Influenza. The patient denies tobacco, alcohol, or recreational drug use. - Related Data Allergies Allergy/AdvReac Type Severity Reaction Status Date / Time latex Allergy Rash Verified 01/25/21 11:24 Home Meds: Home Meds Aspirin [Zoey Chewable] 81 mg PO DAILY 09/20/13 [History] Lisinopril 10 mg PO DAILY 09/20/13 [History] Sertraline HCl 100 mg PO DAILY 09/20/13 [History] buPROPion [Wellbutrin SR] 100 mg PO DAILY 09/20/13 [History] glyBURIDE [Glyburide] 10 mg PO BID 09/20/13 [History] Gabapentin [Neurontin] 300 mg PO DAILY 09/26/16 [History] metFORMIN [Glucophage XR] 1,000 mg PO BIDMEALS 09/26/16 [History] Insulin Detemir [Levemir Flextouch] 10 unit SQ DAILY 08/16/20 [History] Cholecalciferol (Vitamin D3) [Vitamin D] 5,000 unit PO DAILY 08/18/20 [History] Pioglitazone [Actos] 30 mg PO DAILY 08/18/20 [History] atorvaSTATin [Lipitor] 10 mg PO BEDTIME 08/18/20 [History] Past Medical History HEENT History: Reports: Impaired Vision Other HEENT History: wears glasses Cardiovascular History: Reports: High Cholesterol, Hypertension Respiratory History: Reports: Bronchitis, Recurrent Genitourinary History: Reports: None [employer] History: Reports: None Musculoskeletal History: Reports: Fracture Neurological History: Reports: None Psychiatric History: Reports: Depression Endocrine/Metabolic History: Reports: Diabetes, Type II Hematologic History: Reports: None Immunologic History: Reports: None Oncologic (Cancer) History: Reports: None Dermatologic History: Reports: None - Infectious Disease History Infectious Disease History: Reports: None - Past Surgical History GI Surgical History: Reports: Hernia, Abdominal, Other (See Below) Other GI Surgeries/Procedures: Had recent sugery to fix ruptured intestines and henia Musculoskeletal Surgical History: Reports: Other (See Below) Other Musculoskeletal Surgeries/Procedures:: ankle surgery bilaterally, plates Social & Family History - Family History Family Medical History: No Pertinent Family History - Tobacco Use Tobacco Use Status *Q: Never Tobacco User - Caffeine Use Caffeine Use: Reports: Coffee - Recreational Drug Use Recreational Drug Use: No - Living Situation & Occupation Living situation: Reports: with Family Occupation: Disabled ED ROS GENERAL - Review of Systems Review Of Systems: Comprehensive ROS is negative, except as noted in HPI. ED EXAM, GENERAL - Physical Exam Exam: See Below Exam Limited By: No Limitations General Appearance: Alert, No Apparent Distress, Obese Eye Exam: Bilateral Eye: EOMI, Normal Inspection, PERRL (3mm) Ears: Normal External Exam, Hearing Grossly Normal Nose: Normal Inspection Throat/Mouth: Normal Inspection, Normal Oropharynx, Normal Voice, No Airway Compromise Head: Atraumatic, Normocephalic Neck: Normal Inspection, Full Range of Motion Respiratory/Chest: No Respiratory Distress, Lungs Clear, Normal Breath Sounds, No Accessory Muscle Use, Chest Non-Tender. No: Crackles, Rales, Rhonchi, Wheezing, Stridor Cardiovascular: Normal Peripheral Pulses, Regular Rate, Rhythm, No Edema, No Gallop, No JVD, No Murmur, No Rub Peripheral Pulses: 2+: Radial (L), Radial (R) GI/Abdominal: Normal Bowel Sounds, Soft, Non-Tender, No Distention, No Abnormal Bruit, No Mass, Pelvis Stable. No: Guarding, Rigid, Rebound (Female) Exam: Deferred Rectal (Female) Exam: Deferred Back Exam: Normal Inspection, Full Range of Motion Extremities: Normal Inspection, Normal Range of Motion, Normal Capillary Refill Neurological: Alert, Oriented, CN II-XII Intact, Normal Cognition, Normal Gait, No Motor/Sensory Deficits Psychiatric: Normal Affect, Normal Mood Skin Exam: Warm, Dry, Intact, Normal Color, No Rash. No: Cyanosis, Jaundice, Mottled, Pallor Lymphatic: No Adenopathy Course - Vital Signs Last Recorded V/S: Last Vital Signs Temp 97.3 F 01/23/21 17:57 Pulse 72 01/23/21 17:57 Resp 18 01/23/21 17:57 BP 116/67 01/23/21 17:57 Pulse Ox 96 01/23/21 17:57 - Orders/Labs/Meds Labs: Laboratory Tests 01/23/21 Range/Units 17:42 Influenza Type A RNA Negative (NEGATIVE) RSV RNA (INAAT) Negative (NEGATIVE) Influenza Type B RNA Negative (NEGATIVE) SARS-CoV-2 RNA (MARIIA) Positive H (NEGATIVE) - Re-Assessments/Exams Free Text/Narrative Re-Assessment/Exam: 01/24/21 COVID swab sent. Findings of examination and lab work reviewed with patient. Discussed criteria for monoclonal antibodies as patient meets requirements given comorbidities; instructed patient to follow up with her PCP tomorrow to arrange to infusion. Red flag signs and symptoms which would warrant immediate reevaluation reviewed. Patient verbalized understanding and agreement with the plan of care. Departure - Departure Time of Disposition: 18:47 Disposition: Home, Self-Care 01 Condition: Good Clinical Impression: COVID-19 - Discharge Information *PRESCRIPTION DRUG MONITORING PROGRAM REVIEWED*: Not Applicable *COPY OF PRESCRIPTION DRUG MONITORING REPORT IN PATIENT ISIS: Not Applicable Instructions: COVID-19 Frequently Asked Questions, 10 Things You Can Do to Manage Your COVID-19 Symptoms at Home - CDC (09/10/2020), COVID-19: How to Protect Yourself and Others - CDC, COVID-19: What to Do If You Are Sick- [facility] (05/12/2020) Referrals: Vince Alvarez [Primary Care Provider] - Forms: ED Department Discharge Additional Instructions: 1.) Follow State Health Department Guidelines regarding quarantine for COVID-19; 10 days from symptoms onset, longer if you continue to fever. 2.) You may take ibuprofen (Advil/Motrin) 400mg every six hours, for fever and muscle aches. You may also take acetaminophen (Tylenol) 650-1000mg every six hours, for fever and muscle aches You may stagger these medications so you are taking a dose of either every three hours. 3.) Drink small, frequent sips of water to stay hydrated. 4.) Eat small, snack-like meals to avoid nausea. Sepsis Event Note (ED) - Evaluation Sepsis Screening Result: No Definite Risk
[2021-01-23 18:44] LABS: CORONAVIRUS COVID-19 NAA POSITIVE (NEGATIVE); RESPIRATORY SYNCYTIAL VIR NAA NEGATIVE (NEGATIVE)
== END 2021-01-23 19:10 | disposition home or self-care (01) ==
LOC: DL.ED 17:37
DX: U07.1 COVID-19 (principal); E78.00 Pure hypercholesterolemia, unspecified; I10 Essential (primary) hypertension; E11.9 Type 2 diabetes mellitus without complications; Z91.040 Latex allergy status; Z79.82 Long term (current) use of aspirin; Z79.899 Other long term (current) drug therapy; Z79.4 Long term (current) use of insulin
CPT/HCPCS: 0241U; 99284

== ENCOUNTER 2021-01-24 23:29 | Emergency (ER) | payer MEDICAID ==
[2021-01-25 00:39] LABS: ANION GAP 14.4 mEq/L (7-13); CHLORIDE,CL 104 mmol/L (98-107); SODIUM,NA 137 mmol/L (136-145)
--- NOTE | 2021-01-25 00:57 | EDM.PDOC ---
ED HPI GENERAL MEDICAL PROBLEM - General Chief Complaint: Respiratory Problem Stated Complaint: AMBULANCE Time Seen by Provider: 01/25/21 00:05 Source of Information: Reports: Patient History Limitations: Reports: No Limitations - History of Present Illness INITIAL COMMENTS - FREE TEXT/NARRATIVE: ED with c/o cough and chest pain with coughing. Feel SOB at times. Positive COVID yesterday. No fever or chills. decreased appetite. taking fluids. Diabetic. blood sugars same as prior. Wound to right ankle, chronic, No prior hx clotting disorder. Tylenol last at 10pm. Left Chest Pain Score (Numeric/FACES): 8 - Related Data Allergies Allergy/AdvReac Type Severity Reaction Status Date / Time latex Allergy Rash Verified 01/23/21 18:08 Home Meds: Home Meds Aspirin [Zoey Chewable] 81 mg PO DAILY 09/20/13 [History] Lisinopril 10 mg PO DAILY 09/20/13 [History] Sertraline HCl 100 mg PO DAILY 09/20/13 [History] buPROPion [Wellbutrin SR] 100 mg PO DAILY 09/20/13 [History] glyBURIDE [Glyburide] 10 mg PO BID 09/20/13 [History] Gabapentin [Neurontin] 300 mg PO DAILY 09/26/16 [History] metFORMIN [Glucophage XR] 1,000 mg PO BIDMEALS 09/26/16 [History] Insulin Detemir [Levemir Flextouch] 10 unit SQ DAILY 08/16/20 [History] Cholecalciferol (Vitamin D3) [Vitamin D] 5,000 unit PO DAILY 08/18/20 [History] Pioglitazone [Actos] 30 mg PO DAILY 08/18/20 [History] atorvaSTATin [Lipitor] 10 mg PO BEDTIME 08/18/20 [History] Past Medical History HEENT History: Reports: Impaired Vision Other HEENT History: wears glasses Cardiovascular History: Reports: High Cholesterol, Hypertension Respiratory History: Reports: Bronchitis, Recurrent Gastrointestinal History: Reports: GERD Genitourinary History: Reports: None [employer] History: Reports: None Musculoskeletal History: Reports: Fracture Neurological History: Reports: None Psychiatric History: Reports: Depression Endocrine/Metabolic History: Reports: Diabetes, Type II Hematologic History: Reports: None Immunologic History: Reports: None Oncologic (Cancer) History: Reports: None Dermatologic History: Reports: None - Infectious Disease History Infectious Disease History: Reports: Chicken Pox, Novel Coronavirus - Past Surgical History GI Surgical History: Reports: Hernia, Abdominal, Other (See Below) Other GI Surgeries/Procedures: Had recent sugery to fix ruptured intestines and henia Female Surgical History: Reports: Other (See Below) Other Female Surgeries/Procedures: mesh Musculoskeletal Surgical History: Reports: Other (See Below) Other Musculoskeletal Surgeries/Procedures:: ankle surgery bilaterally, plates Social & Family History - Family History Family Medical History: No Pertinent Family History - Tobacco Use Tobacco Use Status *Q: Never Tobacco User - Caffeine Use Caffeine Use: Reports: Tea - Recreational Drug Use Recreational Drug Use: No - Living Situation & Occupation Living situation: Reports: with Family Occupation: Disabled ED ROS GENERAL - Review of Systems Review Of Systems: Comprehensive ROS is negative, except as noted in HPI. ED EXAM, GENERAL - Physical Exam Exam: See Below Exam Limited By: No Limitations General Appearance: Alert, No Apparent Distress Eye Exam: Bilateral Eye: EOMI Ears: Normal External Exam, Hearing Grossly Normal Nose: Normal Inspection Throat/Mouth: Normal Inspection, Normal Voice Head: Atraumatic, Normocephalic Neck: Normal Inspection Respiratory/Chest: No Respiratory Distress, Decreased Breath Sounds. No: Rales, Rhonchi, Wheezing Cardiovascular: Normal Peripheral Pulses, Regular Rate, Rhythm, No Murmur GI/Abdominal: Normal Bowel Sounds, Soft Back Exam: Normal Inspection, Full Range of Motion Extremities: Normal Range of Motion, Normal Capillary Refill Neurological: Alert, Oriented, Normal Cognition Psychiatric: Normal Affect Skin Exam: Warm, Dry, Wound/Incision (Abrasion right anterior /lateral akkle) #1 Interpretation EKG Date: 01/24/21 Time: 23:36 Rhythm: NSR Rate (Beats/Min): 74 [place]: Normal P-Wave: Present QRS: Normal ST-T: Normal Comparison: NA - No Prior EKG Course - Vital Signs Last Recorded V/S: Last Vital Signs Temp Pulse 80 01/25/21 02:04 Resp 16 01/25/21 02:04 BP 131/76 01/25/21 02:04 Pulse Ox 95 01/25/21 02:04 - Orders/Labs/Meds Orders: Active Orders 24 hr Category Date Time Status CULTURE BLOOD [BC] Stat Lab 01/24/21 23:50 Received Labs: Laboratory Tests 11/01/24/21 01/24/21 Range/Units 23:50 23:50 23:50 WBC 2.1 L (5.0-10.0) 10^3/uL RBC 4.41 (4.2-5.4) 10^6/uL Hgb 12.8 (12.0-16.0) g/dL Hct 38.9 (37.0-47.0) % MCV 88.2 (80-100) fL MCH 29.0 (27.0-34.0) pg MCHC 32.9 L (33.0-35.0) g/dL Plt Count 93 L (150-450) 10^3/uL Neut % (Auto) 54.8 (42.2-75.2) % Lymph % (Auto) 33.0 (20.5-50.1) % [place] % (Auto) 10.7 H (2-8) % Eos % (Auto) 1.0 (1.0-3.0) % Baso % (Auto) 0.5 (0.0-1.0) % D-Dimer, Quantitative 409 H (0-400) ng/mL Sodium 137 (136-145) mmol/L Potassium 3.4 L (3.5-5.1) mmol/L Chloride 104 (98-107) mmol/L Carbon Dioxide 22 (21-32) mmol/L Anion Gap 14.4 H (7-13) mEq/L BUN 10 (7-18) mg/dL Creatinine 0.67 (0.55-1.02) mg/dL Est Cr Clr Drug Dosing 80.00 mL/min Estimated GFR (MDRD) > 60 BUN/Creatinine Ratio 14.9 (No establ ref range) Glucose 168 H (70-99) mg/dL Lactic Acid (0.4-2.0) mmol/L Calcium 8.3 L (8.5-10.1) mg/dL Magnesium 2.1 (1.8-2.4) mg/dL Total Bilirubin 0.4 (0.2-1.0) mg/dL AST 17 (15-37) U/L ALT 25 (14-59) U/L Alkaline Phosphatase 154 H (46-116) U/L Troponin I High Sens 6 (<=51) pg/mL B-Natriuretic Peptide < 5 (0-100) pg/ml Total Protein 7.5 (6.4-8.2) g/dL Albumin 3.2 L (3.4-5.0) g/dL Globulin 4.3 Albumin/Globulin Ratio 0.74 01/24/ Range/Units 23:50 WBC (5.0-10.0) 10^3/uL RBC (4.2-5.4) 10^6/uL Hgb (12.0-16.0) g/dL Hct (37.0-47.0) % MCV (80-100) fL MCH (27.0-34.0) pg MCHC (33.0-35.0) g/dL Plt Count (150-450) 10^3/uL Neut % (Auto) (42.2-75.2) % Lymph % (Auto) (20.5-50.1) % [place] % (Auto) (2-8) % Eos % (Auto) (1.0-3.0) % Baso % (Auto) (0.0-1.0) % D-Dimer, Quantitative (0-400) ng/mL Sodium (136-145) mmol/L Potassium (3.5-5.1) mmol/L Chloride (98-107) mmol/L Carbon Dioxide (21-32) mmol/L Anion Gap (7-13) mEq/L BUN (7-18) mg/dL Creatinine (0.55-1.02) mg/dL Est Cr Clr Drug Dosing mL/min Estimated GFR (MDRD) BUN/Creatinine Ratio (No establ ref range) Glucose (70-99) mg/dL Lactic Acid 0.8 (0.4-2.0) mmol/L Calcium (8.5-10.1) mg/dL Magnesium (1.8-2.4) mg/dL Total Bilirubin (0.2-1.0) mg/dL AST (15-37) U/L ALT (14-59) U/L Alkaline Phosphatase (46-116) U/L Troponin I High Sens (<=51) pg/mL B-Natriuretic Peptide (0-100) pg/ml Total Protein (6.4-8.2) g/dL Albumin (3.4-5.0) g/dL Globulin Albumin/Globulin Ratio Departure - Departure Time of Disposition: 02:29 Disposition: Home, Self-Care 01 Condition: Good Clinical Impression: COVID-19, Diabetes Pneumonia Qualifiers: Pneumonia type: due to COVID-19 virus Qualified Code(s): U07.1 - COVID-19; J12.82 - Pneumonia due to coronavirus disease 2019 - Discharge Information *PRESCRIPTION DRUG MONITORING PROGRAM REVIEWED*: No *COPY OF PRESCRIPTION DRUG MONITORING REPORT IN PATIENT ISIS: No Instructions: COVID-19 Frequently Asked Questions, COVID-19: What to Do If You Are Sick- [facility] (05/12/2020) Forms: ED Department Discharge Additional Instructions: tylenol 500mg every 4 hours as needed for fever/ discomfort diet as tolerated encourage fluids small activity at least every hour while awake walk short distance to bathroom or at least distance around couch no alcohol tessalon pearls 200mg every 8 hours as needed for cough folllow up if severe difficulty breathing Sepsis Event Note (ED) - Focused Exam Vital Signs: Vital Signs Pulse Resp BP Pulse Ox 01/25/21 02:04 80 16 131/76 95 01/25/21 01:00 74 22 H 130/64 93 L 01/25/21 00:30 74 20 131/79 93 L 01/25/21 00:00 72 18 125/70 95 - My Orders Last 24 Hours: My Active Orders 01/24/21 23:50 CULTURE BLOOD [BC] Stat - Assessment/Plan Last 24 Hours: My Active Orders 01/24/21 23:50 CULTURE BLOOD [BC] Stat
[2021-01-25 02:05] VITALS: BP 131/76; PULSE 80
--- NOTE | 2021-01-25 02:11 | CT ---
PROCEDURE INFORMATION: Exam: CT Chest Without Contrast; Diagnostic Exam date and time: 01/25/2021 12:52 AM Age: 55 years old Clinical indication: Other: Covid TECHNIQUE: Imaging protocol: Diagnostic computed tomography of the chest without contrast. Radiation optimization: All CT scans at this facility use at least one of these dose optimization techniques: automated exposure control; mA and/or kV adjustment per patient size (includes targeted exams where dose is matched to clinical indication); or iterative reconstruction. COMPARISON: CT Chest wo Cont 03/15/2019 4:55 AM FINDINGS: Lungs: Hazy bilateral pulmonary opacities which are consistent with COVID-19. Pleural spaces: Unremarkable. No pneumothorax. No pleural effusion. Heart: Unremarkable. No cardiomegaly. No pericardial effusion. Aorta: Unremarkable. No aortic aneurysm. Other arteries: There is mild atherosclerotic disease. Lymph nodes: Unremarkable. No enlarged lymph nodes. Bones/joints: Unremarkable. No acute fracture. Soft tissues: Unremarkable. IMPRESSION: Hazy bilateral pulmonary opacities which are consistent with COVID-19.
[2021-01-25] MEDS ORDERED: Benzonatate 100 MG Cap PO ONE (02:25)
== END 2021-01-25 02:54 | disposition home or self-care (01) ==
LOC: DL.ED 23:29
DX: U07.1 COVID-19 (principal); J12.82 Pneumonia due to coronavirus disease 2019; E11.9 Type 2 diabetes mellitus without complications; E78.00 Pure hypercholesterolemia, unspecified; I10 Essential (primary) hypertension; Z91.040 Latex allergy status; Z79.82 Long term (current) use of aspirin; Z79.4 Long term (current) use of insulin; Z79.899 Other long term (current) drug therapy
CPT/HCPCS: 36415; 71250; 80053; 83605; 83735; 83880; 84484; 85025; 85379; 87040; 93005; 99285; A9270

== ENCOUNTER 2022-01-26 23:41 | Emergency (ER) | payer MEDICAID, OTHER ==
[2022-01-26 23:46] VITALS: BP 115/70; PULSE 77
[2022-01-27] MEDS ORDERED: Ketorolac 30 MG/ML SDV IM ONE (00:07)
[2022-01-27] MEDS ORDERED: Acetaminophen 500 MG Tab PO ONE (00:07)
== END 2022-01-27 01:09 | disposition home or self-care (01) ==
LOC: DL.ED 23:41
DX: S29.9XXA Unspecified injury of thorax, initial encounter (principal); E78.00 Pure hypercholesterolemia, unspecified; I10 Essential (primary) hypertension; E11.9 Type 2 diabetes mellitus without complications; Z91.040 Latex allergy status; Z79.82 Long term (current) use of aspirin; Z79.4 Long term (current) use of insulin; Z79.899 Other long term (current) drug therapy; W01.0XXA Fall on same level from slipping, tripping and stumbling without subsequent striking against object, initial encounter
CPT/HCPCS: 71101; 96372; 99283; A9270; J1885

== ENCOUNTER 2022-03-16 16:43 | Emergency (ER) | payer MEDICAID ==
[2022-03-16 17:16] VITALS: BP 90/67; PULSE 99
[2022-03-16] MEDS ORDERED: Sodium Chloride 0.9% 1,000 ML IV ONE ×2 (17:51→18:32)
[2022-03-16 18:15] LABS: ANION GAP 15.8 mEq/L (7-13); CHLORIDE,CL 100 mmol/L (98-107); SODIUM,NA 136 mmol/L (136-145)
[2022-03-16 18:18] LABS: ESTIMATED GFR 27 mL/min (>=60)
[2022-03-16 21:12] LABS: ANION GAP 15.7 mEq/L (7-13)
== END 2022-03-16 21:52 | disposition home or self-care (01) ==
LOC: DL.ED 16:43
DX: I95.9 Hypotension, unspecified (principal); E11.65 Type 2 diabetes mellitus with hyperglycemia; N17.9 Acute kidney failure, unspecified; E78.00 Pure hypercholesterolemia, unspecified; I10 Essential (primary) hypertension; Z91.040 Latex allergy status; Z79.82 Long term (current) use of aspirin; Z79.4 Long term (current) use of insulin; Z79.899 Other long term (current) drug therapy
CPT/HCPCS: 36415; 80048; 80053; 81001; 82009; 82150; 82947; 83605; 83690; 83735; 84484; 85025; 86140; 87086; 87088; 87186; 93005; 96360; 96361; 99285; J7030

== ENCOUNTER 2023-01-22 01:18 | Emergency (ER) | payer SELFPAY ==
[2023-01-22 00:45] LABS: BASOPHILS PERCENT AUTO 0.3 % (0.0-1.0); HEMATOCRIT 39.1 % (37.0-47.0); HEMOGLOBIN 12.9 g/dL (12.0-16.0); MEAN CORPUSCULAR HEMOGLOBIN 29.5 pg (27.0-34.0); MEAN CORPUSCULAR VOLUME 89.3 fL (80-100); MONOCYTES PERCENT AUTO 6.9 % (2-8); NEUTROPHILS PERCENT AUTO 68.8 % (42.2-75.2); PLATELET COUNT,PLT 211 10^3/uL (150-450); RED BLOOD CELL COUNT 4.38 10^6/uL (4.2-5.4); WHITE BLOOD CELL COUNT,WBC 7.1 10^3/uL (5.0-10.0)
[2023-01-22 00:59] LABS: ANION GAP 12.4 mEq/L (7-13); BILIRUBIN TOTAL 0.2 mg/dL (0.2-1.0); BUN/CREATININE RATIO 18.4 (No establ ref range); CALCIUM 8.4 mg/dL (8.5-10.1); CREATININE 0.87 mg/dL (0.55-1.02); EST CRCL DRUG DOSING (CG) 60.12 mL/min; MAGNESIUM 1.6 mg/dL (1.8-2.4); POTASSIUM,K 3.4 mmol/L (3.5-5.1); PROTEIN TOTAL,TP 7.5 g/dL (6.4-8.2)
[2023-01-22 01:06] LABS: A/G RATIO 0.67
[2023-01-22 01:11] LABS: APPEARANCE,URINE CLEAR (CLEAR); BILIRUBIN,URINE NEGATIVE (NEGATIVE); COLOR,URINE YELLOW (YELLOW); GLUCOSE,URINE 500 (NEGATIVE); KETONES,URINE TRACE (NEGATIVE); LEUKOCYTE ESTERASE,URINE NEGATIVE (NEGATIVE); NITRITE,URINE NEGATIVE (NEGATIVE); OCCULT BLOOD,URINE NEGATIVE (NEGATIVE); PROTEIN,URINE TRACE (NEGATIVE); UROBILINOGEN,URINE 0.2 mg/dL (0.2-1.0)
[2023-01-22 01:18] LABS: BACTERIA,URINE FEW /HPF (0-FEW/HPF); EPITHELIAL CELLS,URINE FEW /HPF (NOT SEEN); RBC,URINE 0-5 /HPF (0-5); WBC,URINE 0-5 /HPF (0-5/HPF)
[~2023-01-22 01:18] MED LIST: Potassium Chloride 10 MEQ Tab.ER PO ONE; Sodium Chloride 0.9% 10 ML Syringe FLUSH PRN
[2023-01-22 01:35] VITALS: BP 147/85; PULSE 86
== END 2023-01-22 01:30 | disposition home or self-care (01) ==
LOC: DL.ED 01:18
DX: R55 Syncope and collapse (principal); I10 Essential (primary) hypertension; E11.9 Type 2 diabetes mellitus without complications; E78.00 Pure hypercholesterolemia, unspecified; E66.9 Obesity, unspecified; Z91.040 Latex allergy status; Z79.84 Long term (current) use of oral hypoglycemic drugs; Z79.82 Long term (current) use of aspirin; Z79.899 Other long term (current) drug therapy; Z86.16 Personal history of COVID-19
CPT/HCPCS: 36415; 80053; 81001; 82947; 83735; 85025; 93005; 93010; 99284; A9270

== ENCOUNTER 2023-02-06 23:49 | Emergency (ER) | payer SELFPAY ==
[2023-02-06] MEDS ORDERED: Sodium Chloride 0.9% 10 ML Syringe FLUSH PRN (23:54)
[2023-02-07 00:03] LABS: BASOPHILS PERCENT AUTO 0.5 % (0.0-1.0); EOSINOPHILS PERCENT AUTO 5.3 % (1.0-3.0); HEMATOCRIT 39.5 % (37.0-47.0); HEMOGLOBIN 13.4 g/dL (12.0-16.0); LYMPHOCYTES PERCENT AUTO 39.2 % (20.5-50.1); MEAN CORPUSCULAR HEMOGLOBIN 29.5 pg (27.0-34.0); MEAN CORPUSCULAR HGB CONC 33.9 g/dL (33.0-35.0); MONOCYTES PERCENT AUTO 7.9 % (2-8); NEUTROPHILS PERCENT AUTO 47.1 % (42.2-75.2); PLATELET COUNT,PLT 179 10^3/uL (150-450); RED BLOOD CELL COUNT 4.54 10^6/uL (4.2-5.4); WHITE BLOOD CELL COUNT,WBC 6.4 10^3/uL (5.0-10.0)
[2023-02-07 00:10] LABS: APPEARANCE,URINE CLEAR (CLEAR); BILIRUBIN,URINE NEGATIVE (NEGATIVE); COLOR,URINE YELLOW (YELLOW); GLUCOSE,URINE 250 (NEGATIVE); KETONES,URINE NEGATIVE (NEGATIVE); LEUKOCYTE ESTERASE,URINE NEGATIVE (NEGATIVE); NITRITE,URINE NEGATIVE (NEGATIVE); OCCULT BLOOD,URINE NEGATIVE (NEGATIVE); PROTEIN,URINE NEGATIVE (NEGATIVE); UROBILINOGEN,URINE 0.2 mg/dL (0.2-1.0)
[2023-02-07 00:12] LABS: BENZODIAZEPINE,URINE NEGATIVE (NEGATIVE); MDMA (ECSTASY), URINE NEGATIVE (NEGATIVE); METHADONE,URINE NEGATIVE (NEGATIVE); METHAMPHETAMINES,URINE NEGATIVE (NEGATIVE); OPIATES,URINE NEGATIVE (NEGATIVE); TCA,URINE NEGATIVE (NEGATIVE)
[2023-02-07 00:13] LABS: AMPHETAMINES,URINE NEGATIVE (NEGATIVE); BARBITURATES,URINE NEGATIVE (NEGATIVE); OXYCODONE,URINE NEGATIVE (NEGATIVE); PHENCYCLIDINE,URINE NEGATIVE (NEGATIVE)
[2023-02-07 00:15] LABS: KETONES,BLOOD NEGATIVE
[2023-02-07 00:31] LABS: LACTIC ACID 2.2 mmol/L (0.4-2.0)
[2023-02-07 00:32] LABS: ALANINE AMINOTRANSFERASE,ALT 16 U/L (14-59); ALBUMIN 3.1 g/dL (3.4-5.0); ALKALINE PHOSPHATASE 187 U/L (46-116); ANION GAP 15.9 mEq/L (7-13); ASPARTATE AMNIOTRANSFERASE,AST 11 U/L (15-37); BILIRUBIN TOTAL 0.2 mg/dL (0.2-1.0); BLOOD UREA NITROGEN,BUN 8 mg/dL (7-18); BUN/CREATININE RATIO 12.3 (No establ ref range); CALCIUM 8.3 mg/dL (8.5-10.1); CARBON DIOXIDE,CO2 22 mmol/L (21-32); CHLORIDE,CL 101 mmol/L (98-107); CREATININE 0.65 mg/dL (0.55-1.02); EST CRCL DRUG DOSING (CG) 80.47 mL/min; ETHANOL BLOOD MEDICAL 244 mg/dL (0); GLUCOSE RANDOM 249 mg/dL (70-99); LIPASE 35 U/L (16-77); MAGNESIUM 1.9 mg/dL (1.8-2.4); POTASSIUM,K 3.9 mmol/L (3.5-5.1); PROTEIN TOTAL,TP 7.5 g/dL (6.4-8.2); SODIUM,NA 135 mmol/L (136-145); TSH ULTRASENSITIVE 3.29 uIU/mL (0.36-3.74)
[2023-02-07 00:33] LABS: ESTIMATED GFR 101 mL/min (>=60)
[2023-02-07 00:34] LABS: C-REACTIVE PROTEIN < 0.50 ng/dL (<=0.50)
[2023-02-07] MEDS ORDERED: Sodium Chloride 0.9% 1,000 ML IV ONE (00:43)
[2023-02-07 02:13] VITALS: BP 113/74; PULSE 72
== END 2023-02-07 02:29 | disposition home or self-care (01) ==
LOC: DL.ED 23:49
DX: F10.129 Alcohol abuse with intoxication, unspecified (principal); E11.65 Type 2 diabetes mellitus with hyperglycemia; S81.801D Unspecified open wound, right lower leg, subsequent encounter; S81.802D Unspecified open wound, left lower leg, subsequent encounter; R74.8 Abnormal levels of other serum enzymes; I10 Essential (primary) hypertension; E78.00 Pure hypercholesterolemia, unspecified; K21.9 Gastro-esophageal reflux disease without esophagitis; E11.9 Type 2 diabetes mellitus without complications; Z86.16 Personal history of COVID-19; Z79.82 Long term (current) use of aspirin; Z79.84 Long term (current) use of oral hypoglycemic drugs; Z79.4 Long term (current) use of insulin; Z79.899 Other long term (current) drug therapy; Z91.040 Latex allergy status
CPT/HCPCS: 36415; 80053; 80305-QW; 80307; 81003; 82009; 82140; 82947; 83605; 83690; 83735; 84443; 84484; 85025; 86140; 93005; 96360; 99284; 99285-25; J7030

== ENCOUNTER 2024-12-08 00:15 | Emergency (ER) | payer MEDICAID ==
[2024-12-08 02:00] VITALS: BP 112/62; PULSE 80
== END 2024-12-08 01:55 | disposition home or self-care (01) ==
LOC: DL.ED 00:15
DX: M79.621 Pain in right upper arm (principal); E78.00 Pure hypercholesterolemia, unspecified; I10 Essential (primary) hypertension; E11.9 Type 2 diabetes mellitus without complications; Z86.16 Personal history of COVID-19; Z91.040 Latex allergy status; Z79.82 Long term (current) use of aspirin; Z79.899 Other long term (current) drug therapy; Z79.4 Long term (current) use of insulin; Z79.84 Long term (current) use of oral hypoglycemic drugs; W10.1XXA Fall (on)(from) sidewalk curb, initial encounter; Y93.89 Activity, other specified
CPT/HCPCS: 73060; 99284; A9270